=== PATIENT | female | born 1975 | race African-American/Black ===

== ENCOUNTER 2021-06-20 15:31 | Inpatient (IN) ==
[2021-06-20] MEDS ORDERED: ONDANSETRON 4 MG/2 ML VIAL IV PRN (17:32)
[2021-06-20] MEDS ORDERED: hydrALAZINE 20 MG/1 ML VIAL IV PRN (17:32)
[2021-06-20] MEDS ORDERED: GLUCAGON 1 MG VIAL IM PRN (17:32)
[2021-06-20] MEDS ORDERED: DEXTROSE 10% 250 ML BAG IV PRN (18:50)
[2021-06-21 04:57] LABS: Basophils # 0.1 10*3/uL (0.0-0.2); Basophils % 0.9 % (0.0-0.8); Eosinophils # 0.1 10*3/uL (0.0-0.87); Eosinophils % 1.7 % (0.00-10.9); Hematocrit 41.4 VOL% (35.7-47.0); Hemoglobin 12.7 GM/DL (12.0-16.0); Immature Granulocytes % 0.4 %; Immature Granulocytes Absolute 0.03 #; Lymphocytes # 1.3 10*3/uL (1.4-4.0); Lymphocytes % 19.1 % (21.3-54.2); Mean Corpuscular HGB Conc 30.7 GM/DL (32-36); Mean Corpuscular Volume 72.1 FL (87-102); Mean Platelet Volume 9.9 FL (9.6-12.0); Monocytes # 0.7 10*3/uL (0.11-0.8); Monocytes % 9.7 % (1.7-12.7); Neutrophils % 68.2 % (38.7-73.9); Platelet Count 394 T/CUMM (130-400); Red Blood Count 5.74 MC/CUMM (3.8-5.5); Red Cell Distribution Width 20.1 % (9.3-17.3)
[2021-06-21 05:22] LABS: Albumin 2.3 G/DL (3.4-5.0); Bilirubin,Total 1.9 MG/DL (0.20-1.00); Calcium 8.8 MG/DL (8.5-10.1); Osmolality,Calculated 276.4 MOS/KG (273-304); Potassium 3.7 MMOL/L (3.5-5.1); Total Protein 6.9 G/DL (6.4-8.2)
[2021-06-21] MEDS ORDERED: MAGNESIUM SULF RIDER 4 GM/100 ML PREMIX IV PRN (07:49)
[2021-06-21 09:29] LABS: INR 1.4; PT Patient Result 14.9 SECS (10.5-12.0)
[2021-06-21] MEDS: FUROSEMIDE 40 MG/4 ML VIAL IV SCH ×2 (10:00→15:18)
[2021-06-21 13:04] LABS: Lymphocytes,Pleural Fluid 18 %; Monocytes,Pleural Fluid 10 %; Neutrophils,Pleural Fluid 71 %
[2021-06-21 13:05] LABS: RBC,Pleural Fluid 484 T/CUMM
[2021-06-21] MEDS: MAGNESIUM SULF RIDER 2 GM/50 ML PREMIX IV PRN (15:23)
[2021-06-21] MEDS: carvediloL 3.125 MG TABLET PO SCH (17:31)
[2021-06-21] MEDS ORDERED: MORPHINE 2 MG/1 ML SYRINGE IV ONE (23:31)
[2021-06-22 05:23] LABS: Basophils % 0.4 % (0.0-0.8); Eosinophils # 0.2 10*3/uL (0.0-0.87); Eosinophils % 2.3 % (0.00-10.9); Hematocrit 38.7 VOL% (35.7-47.0); Hemoglobin 11.6 GM/DL (12.0-16.0); Immature Granulocytes % 0.4 %; Immature Granulocytes Absolute 0.03 #; Lymphocytes # 1.3 10*3/uL (1.4-4.0); Lymphocytes % 18.5 % (21.3-54.2); Mean Platelet Volume 10.1 FL (9.6-12.0); Monocytes # 0.6 10*3/uL (0.11-0.8); Neutrophils % 70.4 % (38.7-73.9); Platelet Count 350 T/CUMM (130-400); Red Cell Distribution Width 19.6 % (9.3-17.3); White Blood Count 7.3 T/CUMM (4-12)
[2021-06-22 05:48] LABS: Calcium 8.6 MG/DL (8.5-10.1); Osmolality,Calculated 278.4 MOS/KG (273-304); Potassium 3.8 MMOL/L (3.5-5.1)
[2021-06-22] MEDS: LOSARTAN 25 MG TABLET PO SCH (08:43)
[2021-06-22] MEDS: carvediloL 3.125 MG TABLET PO SCH ×2 (08:44→16:04)
[2021-06-22] MEDS: FUROSEMIDE 40 MG/4 ML VIAL IV SCH ×2 (08:47→15:19)
[2021-06-22 16:48] LABS: Total Protein,Peritoneal Fluid 3.7 G/DL
[2021-06-22 17:15] LABS: Neutrophils,Peritoneal Fluid 5 %
[2021-06-22 17:16] LABS: RBC,Peritoneal Fluid 3784 T/CUMM
[2021-06-23] MEDS: ACETAMINOPHEN 325 MG TABLET PO PRN (03:20)
[2021-06-23 06:02] LABS: Osmolality,Calculated 282.1 MOS/KG (273-304); Potassium 4.1 MMOL/L (3.5-5.1)
[2021-06-23 06:16] LABS: Basophils # 0.1 10*3/uL (0.0-0.2); Basophils % 0.8 % (0.0-0.8); Eosinophils # 0.3 10*3/uL (0.0-0.87); Eosinophils % 5.2 % (0.00-10.9); Hematocrit 39.4 VOL% (35.7-47.0); Hemoglobin 11.8 GM/DL (12.0-16.0); Immature Granulocytes % 0.2 %; Immature Granulocytes Absolute 0.01 #; Lymphocytes # 1.3 10*3/uL (1.4-4.0); Lymphocytes % 21.4 % (21.3-54.2); Mean Corpuscular HGB Conc 29.9 GM/DL (32-36); Mean Corpuscular Volume 74.1 FL (87-102); Mean Platelet Volume 11.1 FL (9.6-12.0); Monocytes # 0.7 10*3/uL (0.11-0.8); Monocytes % 11.3 % (1.7-12.7); Neutrophils % 61.1 % (38.7-73.9); Platelet Count 331 T/CUMM (130-400); Red Blood Count 5.32 MC/CUMM (3.8-5.5); Red Cell Distribution Width 19.8 % (9.3-17.3); White Blood Count 6.1 T/CUMM (4-12)
[2021-06-23] MEDS: carvediloL 3.125 MG TABLET PO SCH ×2 (10:22→16:16)
[2021-06-23] MEDS: LOSARTAN 25 MG TABLET PO SCH (10:22)
[2021-06-23] MEDS: FUROSEMIDE 40 MG/4 ML VIAL IV SCH ×2 (10:37→16:17)
[2021-06-23] MEDS: APIXABAN 5 MG TABLET PO SCH ×2 (16:16→21:13)
[2021-06-24 05:41] LABS: Calcium 8.9 MG/DL (8.5-10.1); Osmolality,Calculated 282.3 MOS/KG (273-304); Potassium 3.5 MMOL/L (3.5-5.1)
[2021-06-24 05:51] LABS: Basophils # 0.1 10*3/uL (0.0-0.2); Eosinophils # 0.3 10*3/uL (0.0-0.87); Eosinophils % 4.1 % (0.00-10.9); Hematocrit 40.7 VOL% (35.7-47.0); Immature Granulocytes % 0.3 %; Immature Granulocytes Absolute 0.02 #; Lymphocytes # 1.1 10*3/uL (1.4-4.0); Lymphocytes % 18.6 % (21.3-54.2); Mean Corpuscular HGB Conc 29.2 GM/DL (32-36); Mean Corpuscular Volume 75.1 FL (87-102); Mean Platelet Volume 10.2 FL (9.6-12.0); Monocytes # 0.5 10*3/uL (0.11-0.8); Monocytes % 8.1 % (1.7-12.7); Neutrophils % 67.9 % (38.7-73.9); Platelet Count 301 T/CUMM (130-400); Red Blood Count 5.42 MC/CUMM (3.8-5.5); White Blood Count 6.1 T/CUMM (4-12)
[2021-06-24 05:52] LABS: Hemoglobin 11.9 GM/DL (12.0-16.0)
[2021-06-24] MEDS: MAGNESIUM SULF RIDER 2 GM/50 ML PREMIX IV PRN (06:59)
[2021-06-24] MEDS: POTASSIUM CHLORIDE 20 MEQ TABLET PO PRN (08:49)
[2021-06-24] MEDS: carvediloL 3.125 MG TABLET PO SCH ×2 (08:49→16:55)
[2021-06-24] MEDS: LOSARTAN 25 MG TABLET PO SCH (08:49)
[2021-06-24] MEDS: APIXABAN 5 MG TABLET PO SCH ×2 (08:49→20:10)
[2021-06-24] MEDS: FUROSEMIDE 40 MG/4 ML VIAL IV SCH ×2 (08:54→16:58)
[2021-06-24] MEDS: diphenhydrAMINE CAP 25 MG CAPSULE PO PRN ×2 (10:36→16:59)
[2021-06-24] MEDS: ACETAMINOPHEN/CODEINE 300-30 MG TABLET PO PRN (20:10)
[2021-06-25 05:42] LABS: Calcium 8.6 MG/DL (8.5-10.1); Osmolality,Calculated 277.4 MOS/KG (273-304); Potassium 3.7 MMOL/L (3.5-5.1)
[2021-06-25 05:51] LABS: Basophils # 0.1 10*3/uL (0.0-0.2); Eosinophils # 0.5 10*3/uL (0.0-0.87); Eosinophils % 7.2 % (0.00-10.9); Hematocrit 42.8 VOL% (35.7-47.0); Hemoglobin 12.4 GM/DL (12.0-16.0); Immature Granulocytes % 0.3 %; Immature Granulocytes Absolute 0.02 #; Lymphocytes # 1.9 10*3/uL (1.4-4.0); Lymphocytes % 26.4 % (21.3-54.2); Mean Corpuscular Volume 75.2 FL (87-102); Mean Platelet Volume 10.5 FL (9.6-12.0); Monocytes # 0.7 10*3/uL (0.11-0.8); Monocytes % 9.2 % (1.7-12.7); Neutrophils % 55.9 % (38.7-73.9); Platelet Count 341 T/CUMM (130-400); Red Blood Count 5.69 MC/CUMM (3.8-5.5); Red Cell Distribution Width 20.2 % (9.3-17.3); White Blood Count 7.2 T/CUMM (4-12)
[2021-06-25 06:12] LABS: Hypochromia 1+; Microcytosis 1+; Ovalocytes Slight; Target Cells Slight
[2021-06-25 06:13] LABS: Platelet Estimate Normal
[2021-06-25] MEDS: LOSARTAN 25 MG TABLET PO SCH (08:33)
[2021-06-25] MEDS: diphenhydrAMINE CAP 25 MG CAPSULE PO PRN ×3 (08:33→23:02)
[2021-06-25] MEDS: carvediloL 3.125 MG TABLET PO SCH ×2 (08:33→16:37)
[2021-06-25] MEDS: APIXABAN 5 MG TABLET PO SCH ×2 (08:33→21:00)
[2021-06-25] MEDS: ACETAMINOPHEN/CODEINE 300-30 MG TABLET PO PRN ×3 (08:34→21:00)
[2021-06-25] MEDS: POTASSIUM CHLORIDE 20 MEQ TABLET PO PRN (08:34)
[2021-06-25] MEDS: FUROSEMIDE 40 MG/4 ML VIAL IV SCH ×2 (08:37→16:40)
[2021-06-26] MEDS ORDERED: ADENOSINE 6 MG/2 ML VIAL IV ONE ×3 (03:55→06:16)
[2021-06-26] MEDS ORDERED: ADENOSINE 6 MG/2 ML VIAL ONE (03:56)
[2021-06-26 06:39] LABS: Albumin 2.6 G/DL (3.4-5.0); Bilirubin,Total 1.2 MG/DL (0.20-1.00); Calcium 8.8 MG/DL (8.5-10.1); Osmolality,Calculated 283.1 MOS/KG (273-304); Potassium 4.3 MMOL/L (3.5-5.1); Total Protein 7.1 G/DL (6.4-8.2)
[2021-06-26 06:58] LABS: Lymphocytes # 1.7 10*3/uL (1.4-4.0); Mean Platelet Volume 10.7 FL (9.6-12.0)
[2021-06-26 07:23] LABS: Albumin 2.6 G/DL (3.4-5.0); Bilirubin,Direct 0.34 MG/DL (0.0-0.20); Bilirubin,Total 1.3 MG/DL (0.20-1.00); Total Protein 7.2 G/DL (6.4-8.2)
[2021-06-26 07:25] LABS: Basophils # 0.1 10*3/uL (0.0-0.2); Basophils % 0.8 % (0.0-0.8); Eosinophils # 0.5 10*3/uL (0.0-0.87); Eosinophils % 7.7 % (0.00-10.9); Lymphocytes % 27.3 % (21.3-54.2); Mean Corpuscular Volume 75.5 FL (87-102); Monocytes # 0.4 10*3/uL (0.11-0.8); Monocytes % 7.2 % (1.7-12.7); Neutrophils % 56.5 % (38.7-73.9); Platelet Count 314 T/CUMM (130-400); White Blood Count 6.1 T/CUMM (4-12)
[2021-06-26 07:28] LABS: Hemoglobin 11.6 GM/DL (12.0-16.0)
[2021-06-26 07:33] LABS: Eosinophils 5 % (0-10); Hypochromia Slight; Lymphocytes 27 % (20-55); Microcytosis Slight; Platelet Estimate Adequate
[2021-06-26] MEDS: FUROSEMIDE 40 MG/4 ML VIAL IV SCH ×2 (08:08→16:05)
[2021-06-26] MEDS: LOSARTAN 25 MG TABLET PO SCH (08:09)
[2021-06-26] MEDS: carvediloL 3.125 MG TABLET PO SCH ×2 (08:16→17:21)
[2021-06-26] MEDS: APIXABAN 5 MG TABLET PO SCH (08:16)
[2021-06-26] MEDS ORDERED: APIXABAN 5 MG TABLET PO ONE (10:22)
[2021-06-26] MEDS ORDERED: POTASSIUM CHLORIDE RIDER 10 MEQ/100 ML PREMIX IV PRN (16:43)
[2021-06-27 04:45] LABS: Potassium 3.8 MMOL/L (3.5-5.1)
[2021-06-27 04:51] LABS: Basophils # 0.1 10*3/uL (0.0-0.2); Eosinophils # 0.4 10*3/uL (0.0-0.87); Eosinophils % 7.1 % (0.00-10.9); Hemoglobin 12.3 GM/DL (12.0-16.0); Immature Granulocytes % 0.3 %; Immature Granulocytes Absolute 0.02 #; Lymphocytes # 1.5 10*3/uL (1.4-4.0); Lymphocytes % 26.2 % (21.3-54.2); Mean Corpuscular HGB Conc 29.2 GM/DL (32-36); Mean Corpuscular Volume 75.2 FL (87-102); Mean Platelet Volume 10.7 FL (9.6-12.0); Monocytes # 0.6 10*3/uL (0.11-0.8); Monocytes % 9.7 % (1.7-12.7); Neutrophils % 55.7 % (38.7-73.9); Platelet Count 357 T/CUMM (130-400); White Blood Count 5.8 T/CUMM (4-12)
[2021-06-27 04:57] LABS: Hematocrit 42.1 VOL% (35.7-47.0)
[2021-06-27] MEDS ORDERED: SODIUM CHLORIDE 0.9% 1,000 ML IV SCH (06:00)
[2021-06-27] MEDS: LOSARTAN 25 MG TABLET PO SCH (08:38)
[2021-06-27] MEDS: carvediloL 3.125 MG TABLET PO SCH ×2 (08:38→16:56)
[2021-06-27] MEDS: FUROSEMIDE 40 MG/4 ML VIAL IV SCH ×2 (09:19→16:29)
[2021-06-27] MEDS ORDERED: HEPARIN/NACL 0.9% 2 UNITS/ML 3,000 UNIT/1,500 ML BAG IV ONE (09:32)
[2021-06-27 09:36] LABS: Glucose,Urine (UA) Negative (Negative); Ketones,Urine Negative (Negative); Nitrite,Urine Negative (Negative); Protein,Urine Negative (Negative); RBC,Urine 1 /HPF (0-4); Squamous Epithelial Cell,Urine Occasional /HPF (0-10); Urine Appearance Clear (Clear); Urine Color Yellow (Yellow); Urine Specific Gravity 1.015 (1.001-1.035)
[2021-06-27 09:37] LABS: Bilirubin,Urine Negative (Negative); Blood, Urine Small mg/dL (Negative)
[2021-06-27] MEDS ORDERED: MIDAZOLAM 2 MG/2 ML VIAL ONE ×2 (09:50→10:23)
[2021-06-27] MEDS ORDERED: fentaNYL 100 MCG/2 ML VIAL ONE (09:51)
[2021-06-28 04:15] LABS: Calcium 9.4 MG/DL (8.5-10.1); Osmolality,Calculated 279.4 MOS/KG (273-304); Potassium 3.9 MMOL/L (3.5-5.1)
[2021-06-28 04:36] LABS: Basophils # 0.1 10*3/uL (0.0-0.2); Basophils % 0.8 % (0.0-0.8); Eosinophils # 0.3 10*3/uL (0.0-0.87); Eosinophils % 5.1 % (0.00-10.9); Hemoglobin 12.8 GM/DL (12.0-16.0); Immature Granulocytes % 0.3 %; Immature Granulocytes Absolute 0.02 #; Lymphocytes # 1.5 10*3/uL (1.4-4.0); Lymphocytes % 23.7 % (21.3-54.2); Mean Corpuscular HGB Conc 29.4 GM/DL (32-36); Mean Platelet Volume 10.6 FL (9.6-12.0); Monocytes # 0.6 10*3/uL (0.11-0.8); Monocytes % 9.1 % (1.7-12.7); Platelet Count 402 T/CUMM (130-400); Red Blood Count 5.88 MC/CUMM (3.8-5.5); Red Cell Distribution Width 20.3 % (9.3-17.3); White Blood Count 6.2 T/CUMM (4-12)
[2021-06-28 04:39] LABS: Hematocrit 43.5 VOL% (35.7-47.0)
[2021-06-28] MEDS: FUROSEMIDE 40 MG/4 ML VIAL IV SCH (08:24)
[2021-06-28] MEDS: LOSARTAN 25 MG TABLET PO SCH (08:25)
[2021-06-28] MEDS: carvediloL 3.125 MG TABLET PO SCH ×2 (08:25→18:05)
[2021-06-28] MEDS: ACETAMINOPHEN 325 MG TABLET PO PRN (10:13)
[2021-06-28 12:45] LABS: Total Protein 7.2 G/DL (6.4-8.2)
[2021-06-28] MEDS: diphenhydrAMINE CAP 25 MG CAPSULE PO PRN (18:06)
[2021-06-28] MEDS: APIXABAN 5 MG TABLET PO SCH (21:08)
[2021-06-29 05:15] LABS: Calcium 8.6 MG/DL (8.5-10.1); Osmolality,Calculated 286.8 MOS/KG (273-304); Potassium 3.7 MMOL/L (3.5-5.1)
[2021-06-29 05:37] LABS: Basophils # 0.1 10*3/uL (0.0-0.2); Basophils % 0.9 % (0.0-0.8); Eosinophils # 0.8 10*3/uL (0.0-0.87); Eosinophils % 11.8 % (0.00-10.9); Hemoglobin 12.1 GM/DL (12.0-16.0); Immature Granulocytes % 0.3 %; Immature Granulocytes Absolute 0.02 #; Lymphocytes # 1.3 10*3/uL (1.4-4.0); Lymphocytes % 19.4 % (21.3-54.2); Mean Corpuscular HGB Conc 29.5 GM/DL (32-36); Mean Corpuscular Volume 73.9 FL (87-102); Mean Platelet Volume 10.8 FL (9.6-12.0); Monocytes # 0.5 10*3/uL (0.11-0.8); Monocytes % 8.2 % (1.7-12.7); Neutrophils % 59.4 % (38.7-73.9); Platelet Count 352 T/CUMM (130-400); Red Blood Count 5.55 MC/CUMM (3.8-5.5); Red Cell Distribution Width 20.2 % (9.3-17.3); White Blood Count 6.4 T/CUMM (4-12)
[2021-06-29 05:56] LABS: Eosinophils 11 % (0-10); Lymphocytes 24 % (20-55); Platelet Estimate Adequate; Total Cells Counted 100
[2021-06-29] MEDS: ACETAMINOPHEN/CODEINE 300-30 MG TABLET PO PRN (07:32)
[2021-06-29] MEDS: carvediloL 3.125 MG TABLET PO SCH (07:32)
[2021-06-29] MEDS: diphenhydrAMINE CAP 25 MG CAPSULE PO PRN (07:32)
[2021-06-29] MEDS: APIXABAN 5 MG TABLET PO SCH (08:36)
[2021-06-29 08:44] LABS: Total Protein (Chem) 7.2 G/DL (6.4-8.3)
[2021-06-29 08:51] LABS: Albumin (SPE) 3.6 G/DL (3.2-5.3); Albumin (SPE) Rel % 49.5 %; Alpha 1 (SPE) 0.3 G/DL (0.1-0.4); Alpha 1 (SPE) Rel % 4.5 %; Alpha 2 (SPE) 0.6 G/DL (0.4-1.0); Alpha 2 (SPE) Rel % 8.6 %; Beta (SPE) Rel % 13.8 %; Gamma (SPE) 1.7 G/DL (0.7-1.7); Gamma (SPE) Rel % 23.6 %
[2021-06-29] MEDS ORDERED: SPIRONOLACTONE 25 MG TABLET PO SCH (09:00)
[2021-06-29] MEDS ORDERED: DAPAGLIFLOZIN 10 MG TABLET PO SCH (09:00)
[2021-06-29] MEDS ORDERED: SACUBITRIL/VALSARTAN 49-51 MG TABLET PO SCH ×2 (09:00)
[2021-06-29 11:49] VITALS: BP 105/65
[2021-06-29 13:12] LABS: Kappa Free Light Chain 6.97 mg/dL; Lambda Free Light Chain 3.43 mg/dL
[2021-06-30] MEDS ORDERED: SACUBITRIL/VALSARTAN 49-51 MG TABLET PO SCH (09:00)
[2021-07-02 19:47] LABS: Fr Urinary Lambda Light Chain 12.51 mg/L (0.00-3.79); Free Urinary Kappa Light Chain 88.82 mg/L (0.00-32.90); IF FLC Collection Duration Random hr; IF FLC Collection Volume Random mL
== END 2021-06-29 15:45 | disposition home or self-care (01) | DRG 287 ==
LOC: N.ED 15:31 → N.3E 17:32 → SUATTDRO 17:32 → N.3E 21:07 → N.CC 06-26 04:41 → N.TELEN 06-28 14:12
PROVIDERS: ADMIT Internal Medicine Geriatric Medicine; ATTEND Internal Medicine
PROC: CLCCHCL (ICD-10-PCS; 2021-06-27 10:15)